=== PATIENT | male | born 1970 | race Caucasian/White ===

== ENCOUNTER 2020-11-14 18:00 | Emergency (ER) | payer OTHER ==
[~2020-11-14] VITALS: Ht 188 cm; Wt 112.5 kg
[2020-11-14] MEDS ORDERED: NORCO5 PO (19:36)
[2020-11-14] MEDS ORDERED: HYDROCODON-ACE1 EAC7 PO (19:41)
[2020-11-14 19:44] VITALS: BP 151/65
== END 2020-11-14 19:49 | disposition home or self-care (01) ==
LOC: M.ERS 18:00
DX: S62.346A Nondisplaced fracture of base of fifth metacarpal bone, right hand, initial encounter for closed fracture (principal); Z88.0 Allergy status to penicillin; Z88.6 Allergy status to analgesic agent; W18.39XA Other fall on same level, initial encounter; Y93.89 Activity, other specified; Y92.89 Other specified places as the place of occurrence of the external cause; Y99.8 Other external cause status